=== PATIENT | male | born 1995 | race Caucasian/White ===

== ENCOUNTER → 2018-07-30 13:34 | Emergency (ER) | payer OTHER ==
--- NOTE | 2018-07-30 16:48 | ED ---
Throat Pain/Nasal Congestion - HPI Summary HPI Summary: 22 year old M presenting to [facility] accompanied by father complains of muffled hearing in right ear since four hours ago. The patient rates the pain 2/10 in severity. Symptoms aggravated by nothing. Symptoms alleviated by nothing. Patient reports that when he attempts to pop his ear, "it feels like air is coming out." Patient denies LOC, headache, and ear pain. He states that he was hit in right ear by another rugby player's head during a rugby game. - History of Current Complaint Chief Complaint: EDEarPain Time Seen by Provider: 07/30/18 16:41 Hx Obtained From: Patient Onset/Duration: Lasting Hours - 4, Still Present Severity: Mild - Allergies/Home Medications Allergies/Adverse Reactions: Allergies Allergy/AdvReac Type Severity Reaction Status Date / Time No Known Allergies Allergy Verified 07/30/18 17:09 PMH/Surg Hx/FS Hx/Imm Hx Previously Healthy: No Endocrine/Hematology History: Denies: Hx Diabetes Cardiovascular History: Denies: Hx Hypertension, Hx Pacemaker/ICD History: Denies: Hx Renal Disease Sensory History: Denies: Hx Hearing Aid Psychiatric History: Denies: Hx Panic Disorder - Surgical History Surgery Procedure, Year, and Place: T & A Infectious Disease History: No Infectious Disease History: Denies: Traveled Outside the [place] in Last 30 Days - Family History Known Family History: Negative: Diabetes - Social History Alcohol Use: None Hx Substance Use: No Substance Use Type: Reports: None Hx Tobacco Use: No Smoking Status (MU): Never Smoked Tobacco Review of Systems ENT: Negative - ear pain, Other - muffled hearing; when he attempts to pop his ear, "it feels like air is coming out." Neurological: Negative - LOC Negative: Headache All Other Systems Reviewed And Are Negative: Yes Physical Exam - Summary Physical Exam Summary: VITAL SIGNS: Reviewed. GENERAL: Patient is a well-developed and nourished male who is lying comfortable in the stretcher. Patient is not in any acute respiratory distress. HEAD AND FACE: No signs of trauma. No ecchymosis, hematomas or skull depressions. No sinus tenderness. EYES: PERRLA, EOMI x 2, No injected conjunctiva, no nystagmus. EARS: Tympanic membrane perforation in the right side. No tenderness in the scope, facial bulbs. No hematoma or discharge from the right ear. He does not have any racoon eyes. No flagged signs. MOUTH: Oropharynx within normal limits. NECK: Supple, trachea is midline, no adenopathy, no JVD, no carotid bruit, no c- spine tenderness, neck with full ROM. CHEST: Symmetric, no tenderness at palpation LUNGS: Clear to auscultation bilaterally. No wheezing or crackles. CVS: Regular rate and rhythm, S1 and S2 present, no murmurs or gallops appreciated. ABDOMEN: Soft, non-tender. No signs of distention. No rebound no guarding, and no masses palpated. Bowel sounds are normal. EXTREMITIES: FROM in all major joints, no edema, no cyanosis or clubbing. NEURO: Alert and oriented x 3. No acute neurological deficits. Speech is normal and follows commands. SKIN: Dry and warm Triage Information Reviewed: Yes Vital Signs On Initial Exam: Initial Vitals Temp Pulse Resp BP Pulse Ox 99 F 87 16 117/58 98 07/30/18 13:39 07/30/18 13:39 07/30/18 13:39 07/30/18 13:39 07/30/18 13:39 Vital Signs Reviewed: Yes Diagnostics - Vital Signs Vital Signs Temp Pulse Resp BP Pulse Ox 07/30/18 15:49 98.7 F 72 16 122/64 99 07/30/18 13:39 99 F 87 16 117/58 98 - Laboratory Lab Statement: Any lab studies that have been ordered have been reviewed, and results considered in the medical decision making process. EENT Course/Dx - Course Assessment/Plan: This patient is a 22-year-old male who presents to the emergency department with parents with a chief complaint of having decreased hearing in the left ear after he banged his head against another player during a rugby game. Patient denies any pain, denies any ear discharge. Patient reports no loss of consciousness, denies any headache, denies any dizziness. Patient has no other complaints. Patient ambulated into the emergency department. In physical exam the patient has a right tympanic membrane perforation. Since the patient has a neurological exam which is normal with no acute neurological focal deficits, no bone tenderness, I do not see the need of head CT at this time. I discussed the benefits and risk with and patient and patient's parents and they understand and agree that the patient doesn't need a head CT. Of course the we instructed that if the patient develops any nausea, headache, lethargy, any other symptoms patient should return immediately to the emergency department for further workup and management. At this time seen the patient is more stable the patient will be discharged home with follow-up with Dr. Delgado who is the ENT production line worker. The patient is hemodynamically stable alert and oriented 3. - Differential Diagnoses Differential Diagnoses: Contusion, Otitis Externa, Otitis Media - Diagnoses Provider Diagnoses: Tympanic membrane perforation Discharge - Sign-Out/Discharge Documenting (check all that apply): Patient Departure - Discharge - Discharge Plan Condition: Stable Disposition: HOME Prescriptions: Amoxicillin/Clavulanate TAB* [Augmentin TAB 875*] 875 mg PO BID #20 tab Patient Education Materials: Ruptured Eardrum (ED) Referrals: No Primary Care Phys,NOPCP [Primary Care Provider] - Steve Delgado MD [Medical Doctor] - 2 Days Additional Instructions: Follow up with Dr. Delgado, ENT, in 2 days. RETURN TO THE EMERGENCY DEPARTMENT FOR NEW OR WORSENING SYMPTOMS. - Billing Disposition and Condition Condition: STABLE Disposition: Home - Attestation Statements Document Initiated by Scribe: Yes Documenting Scribe: Tiffani Colon Provider For Whom Scribe is Documenting (Include Credential): Mike Mohamud MD Scribe Attestation: Tiffani Kaiser, scribed for Mike Mohamud MD on 07/30/18 at 1803. Scribe Documentation Reviewed: Yes Provider Attestation: The documentation as recorded by the scribeTiffani accurately reflects the service I personally performed and the decisions made by me, Mike Mohamud MD
[2018-07-30 17:30] VITALS: BP 114/69
== END | disposition home or self-care (01) ==
LOC: ED 13:34
DX: H72.91 Unspecified perforation of tympanic membrane, right ear (principal)
CPT/HCPCS: 99282